=== PATIENT | male | born 1955 | race Caucasian/White ===

== ENCOUNTER 2017-10-07 17:37 | Emergency (ER) | payer OTHER ==
[~2017-10-07] VITALS: Ht 177.8 cm; Wt 115.8 kg
[~2017-10-07 17:37] MED LIST: ASPI-808 PO; LISI10TA2 PO; PANT40TA3 PO; POLY17PO23 PO; SUCR1TAB PO
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
[2017-10-07] MEDS ORDERED: HYDR-757 PO (18:43)
[2017-10-07 18:58] VITALS: BP 159/91
== END 2017-10-07 18:54 | disposition home or self-care (01) ==
LOC: EDUNIT# 17:37 → ER 17:39
DX: S16.1XXA Strain of muscle, fascia and tendon at neck level, initial encounter (principal); I10 Essential (primary) hypertension; Z87.442 Personal history of urinary calculi; V43.91XA Unspecified car occupant injured in collision with sport utility vehicle in traffic accident, initial encounter
CPT/HCPCS: 70450; 71020; 72125; 99283

== ENCOUNTER → 2019-04-12 | Outpatient (CLI) | payer MEDICARE ==
[~2019-04-12] MED LIST changes: +HYDR-4226 PO; -POLY17PO23 PO; +POLY17PO31 PO
--- NOTE | 2019-04-12 12:19 | Diagnostic Imaging Report ---
PROCEDURE: CT chest without contrast. TECHNIQUE: Multiple contiguous axial images were obtained through the chest without the use of intravenous contrast. Auto Exposure Controls were utilized during the CT exam to meet ALARA standards for radiation dose reduction. INDICATION: History of pneumonia, dyspnea, cough. CORRELATION STUDY: CT chest 04/09/2016. FINDINGS: Heart size normal. Scattered areas of mild coronary artery calcification. No pericardial effusion. Thoracic aortic contour unremarkable. There is rather significant tortuous course and some kinking at the lower descending thoracic aorta. No definitive pathologically enlarged mediastinal lymph nodes on noncontrast imaging. Unchanged elevated right diaphragm. Some right basilar lung volume loss. Areas of nodularity along pleural surface of the diaphragm and right lateral pleural surface overall generally stable. No significant consolidating infiltrate. Visualized portions of the upper abdomen demonstrate nonobstructing renal stone as well as probable left renal cyst. Likely some degree of hepatic steatosis. IMPRESSION: 1. Generally stable appearance about the chest demonstrates no acute abnormality. Dictated by: Dictated on workstation # [id number]
== END ==
LOC: RAD 09:27
PROVIDERS: ATTEND Nurse Practitioner Family
DX: J18.9 Pneumonia, unspecified organism (principal); J30.9 Allergic rhinitis, unspecified; K21.9 Gastro-esophageal reflux disease without esophagitis
CPT/HCPCS: 71250

== ENCOUNTER 2020-11-13 07:20 | Emergency (ER) | payer MEDICARE ==
[~2020-11-13] VITALS: Ht 177.8 cm; Wt 113.3 kg
[~2020-11-13 07:20] MED LIST changes: -PANT40TA3 PO; +PANT40TA52 PO
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
[2020-11-13 07:56] LABS: BASOPHILS # (AUTO) 0.1 10^3/uL (0.0-0.1); BASOPHILS % (AUTO) 1 % (0-10); EOSINOPHILS # (AUTO) 0.1 10^3/uL (0.0-0.3); EOSINOPHILS % (AUTO) 2 % (0-10); HEMATOCRIT 52 % (40-54); LYMPHOCYTES % (AUTO) 24 % (12-44); MEAN CORPUSCULAR HEMOGLOBIN 30 pg (25-34); MEAN CORPUSCULAR HGB CONC 33 g/dL (32-36); MEAN CORPUSCULAR VOLUME 92 fL (80-99); MEAN PLATELET VOLUME 10.8 fL (9.0-12.2); MONOCYTES # (AUTO) 0.7 10^3/uL (0.0-1.0); MONOCYTES % (AUTO) 9 % (0-12); NEUTROPHILS # (AUTO) 5.2 10^3/uL (1.8-7.8); NEUTROPHILS % (AUTO) 64 % (42-75); PLATELET COUNT 242 10^3/uL (130-400); WHITE BLOOD COUNT 8.1 10^3/uL (4.3-11.0)
[2020-11-13 08:00] LABS: BILIRUBIN,URINE NEGATIVE (NEGATIVE); CLARITY,URINE CLEAR; COLOR,URINE YELLOW; GLUCOSE, URINE (UA) NEGATIVE (NEGATIVE); KETONES,URINE NEGATIVE (NEGATIVE); LEUKOCYTE ESTERASE ,URINE NEGATIVE (NEGATIVE); NITRITE,URINE NEGATIVE (NEGATIVE); PROTEIN,URINE NEGATIVE (NEGATIVE)
[2020-11-13 08:09] LABS: BACTERIA,URINE NEGATIVE /HPF; SQUAMOUS EPITHELIAL CELL,UR RARE /HPF
[2020-11-13 08:11] LABS: ALBUMIN 4.2 GM/DL (3.2-4.5)
[2020-11-13 08:12] LABS: CHLORIDE 106 MMOL/L (98-107); SODIUM 139 MMOL/L (135-145)
--- NOTE | 2020-11-13 08:12 | NUR ---
Spoke to pt's via phone regarding plan of care.
[2020-11-13 08:13] LABS: CALCIUM 9.5 MG/DL (8.5-10.1)
[2020-11-13 08:14] LABS: GLUCOSE 159 MG/DL (70-105); TOTAL PROTEIN 7.4 GM/DL (6.4-8.2)
[2020-11-13 08:15] LABS: CARBON DIOXIDE 22 MMOL/L (21-32)
[2020-11-13 08:16] LABS: BILIRUBIN,TOTAL 0.5 MG/DL (0.1-1.0); FIBRIN DEGRADATION PRODUCTS 0.31 UG/ML (0.00-0.49); PROTHROMBIN TIME PATIENT 13.3 SEC (12.2-14.7)
[2020-11-13 08:17] LABS: ALKALINE PHOSPHATASE 116 U/L (40-136)
[2020-11-13 08:18] LABS: CREATININE SERUM 1.23 MG/DL (0.60-1.30); GFR ESTIMATED 59
[2020-11-13 08:19] LABS: BUN/CREATININE RATIO 11
[2020-11-13 08:21] LABS: ALANINE AMINOTRANSFERASE 31 U/L (0-55)
--- NOTE | 2020-11-13 08:36 | Diagnostic Imaging Report ---
PROCEDURE: CT head wo r/o stroke. TECHNIQUE: Multiple contiguous axial images were obtained through the brain without the use of intravenous contrast. Auto Exposure Controls were utilized during the CT exam to meet ALARA standards for radiation dose reduction. INDICATION: Right hand weakness and numbness. COMPARISON: CT head without contrast 10/07/2017. FINDINGS: No intracranial hemorrhage, mass effect, hydrocephalus, or extra-axial fluid collections. No CT evidence of a territorial infarction. The osseous structures are intact. The visualized paranasal sinuses and mastoids are clear. IMPRESSION: No acute intracranial CT findings. Dictated by: Dictated on workstation # [id number]
--- NOTE | 2020-11-13 08:36 | Diagnostic Imaging Report ---
INDICATION: Screening. COMPARISON: 10/07/2017. FINDINGS: The lungs remain clear. Blurring at the right costophrenic angle is stable and correlates with elevation of the right hemidiaphragm anteriorly as seen at the more remote chest CT. This is incidental. No failure, effusion, or pneumothorax. The heart size is within normal limits. No free air beneath the diaphragms. IMPRESSION: Stable unremarkable frontal chest. Dictated by: Dictated on workstation # [id number]
[2020-11-13 09:17] VITALS: BP 128/83
== END 2020-11-13 09:17 | disposition home or self-care (01) ==
LOC: EDUNIT# 07:20 → ER 07:22
DX: R20.2 Paresthesia of skin (principal); Z88.5 Allergy status to narcotic agent; Z88.8 Allergy status to other drugs, medicaments and biological substances
CPT/HCPCS: 36415; 70450; 71045; 80053; 81000; 84484; 85025; 85379; 85610; 85730; 93005; 93041

== ENCOUNTER 2021-03-16 11:44 | Emergency (ER) | payer MEDICARE ==
[~2021-03-16] VITALS: Ht 177 cm; Wt 113.0 kg
[~2021-03-16 11:44] MED LIST changes: -LISI10TA2 PO; +LISI10TA25 PO; -POLY17PO31 PO; +POLY17PO54 PO
--- NOTE | 2021-03-16 12:09 | ED Lower Extremity ---
General Chief Complaint: Lower Extremity Stated Complaint: POSSIBLE L ANKLE DISLOCATION Source: patient Exam Limitations: no limitations History of Present Illness Date Seen by Provider: March 16, 2021 Time Seen by Provider: 12:07 Initial Comments Left ankle pain. Injured this initially 4 weeks ago. Ordered a boot online, had persistent swelling, comes in today after he stepped on a ball with the forefoot and felt a popping tearing burning sensation in the posterior midline ankle. Onset: just prior to arrival Severity: moderate Pain/Injury Location: left ankle Method of Injury: fell Modifying Factors: Worse With Movement Allergies and Home Medications Allergies Coded Allergies: meperidine (Verified Allergy, Unknown, 04/09/16) morphine (Verified Allergy, Unknown, 04/09/16) perfume (Verified Allergy, Unknown, 04/09/16) Uncoded Allergies: SOAP DYES (Allergy, Unknown, 04/09/16) Home Medications Hydrocodone/Acetaminophen 1 Each Tablet, 1 EACH PO Q4H PRN for PAIN-MODERATE TO SEVERE Prescribed by: BALAJI HAILE on 10/07/171842 Pantoprazole Sodium 40 Mg Tablet.dr, 40 MG PO BIDAC Prescribed by: ANDREY LINO on 04/11/16922 Polyethylene Glycol 3350 17 Gm Powd.pack, 34 GM PO BID Prescribed by: ANDREY LINO on 04/11/16922 Sucralfate 1 Gm Tablet, 1 GM PO ACHS Prescribed by: ANDREY LINO on 04/11/16922 Patient Home Medication List Home Medication List Reviewed: Yes Review of Systems Constitutional: see HPI EENTM: see HPI Respiratory: no symptoms reported Cardiovascular: no symptoms reported Genitourinary: no symptoms reported Musculoskeletal: see HPI Skin: no symptoms reported Psychiatric/Neurological: No Symptoms Reported Past Ymbnonn-Pbdrjd-Crlcpu Hx Patient Social History 2nd Hand Smoke Exposure: No Recent Hopitalizations: No Seasonal Allergies Seasonal Allergies: No Past Medical History Surgeries: Yes (LT HIP X'S2, RT KNEE, RT EYE) Eye Surgery, Orthopedic Respiratory: No Cardiac: Yes Hypertension Neurological: Yes (post concussion syndrome) Reproductive Disorders: No Kidney Stones Gastrointestinal: No Musculoskeletal: Yes Arthritis Endocrine: No HEENT: Yes Loss of Vision: Denies Hearing Impairment: Denies Cancer: No Psychosocial: No Integumentary: No Physical Exam Vital Signs Vital Signs - First Documented 03/16/21 12:01 Temp 36.1 Pulse 78 Resp 22 B/P (MAP) 142/100 (114) Pulse Ox 92 O2 Delivery Room Air Capillary Refill : Height, Weight, BMI Height: 5'10.00" Weight: 255lbs. 5.0oz. 115.848771jj; 35.00 BMI Method:Stated General Appearance: WD/WN, no apparent distress Neck: non-tender, full range of motion Respiratory: no respiratory distress, no accessory muscle use Hips: bilateral hip non-tender, bilateral hip normal inspection, bilateral hip normal range of motion Legs: bilateral leg non-tender, bilateral leg normal inspection, bilateral leg normal range of motion Knees: bilateral knee non-tender, bilateral knee normal inspection, bilateral knee normal range of motion Ankles: left ankle other (Left ankle is swollen, tender to palpation over the medial malleolus, very tender over the Achilles and distal calf) Feet: bilateral foot non-tender, bilateral foot normal inspection, bilateral foot normal range of motion Neurologic/Psychiatric: alert, normal mood/affect, oriented x 3 Skin: normal color, warm/dry Progress/Results/Core Measures Results/Orders My Orders Orders - BALAJI HAILE APRN Ankle, Left, 3 Views (03/16/21 12:06) Vital Signs/I&O 03/16/21 12:01 Temp 36.1 Pulse 78 Resp 22 B/P (MAP) 142/100 (114) Pulse Ox 92 O2 Delivery Room Air Departure Impression Primary Impression: Achilles tendon tear Disposition: HOME, SELF-CARE Condition: Stable Departure-Patient Inst. Decision time for Depature: 12:36 Referrals: NO,LOCAL PHYSICIAN (PCP) Primary Care Physician MADHAVI NINO MD, MICHAEL P MD Patient Instructions: Achilles Tendon Repair Exercises Add. Discharge Instructions: 1. Tylenol and ibuprofen for pain control 2. Wear the walking boot that you have at home. Follow-up with orthopedics of your choosing. Sometimes these require surgical repair. All discharge instructions reviewed with patient and/or family. Voiced understanding. BALAJI HAILE APRN March 16, 2021 12:09
[2021-03-16 12:53] VITALS: BP 138/96
--- NOTE | 2021-03-16 13:23 | Diagnostic Imaging Report ---
Left ankle at 12:15. INDICATION: Ankle pain 3 views were obtained. There are no prior studies available comparison. On the AP view there is a thin calcific density interposed between the medial aspect of the talus and the medial malleolus of the distal tibia. This finding may represent a small avulsion fracture although its age is indeterminate. Clinical followup is recommended. No other fracture or acute bony abnormality appreciated. The ankle mortise is not widened and the talar dome is smooth. There does seem to be mild generalized soft tissue edema about the ankle joint. Incidental note is made of a calcaneal spur. IMPRESSION: 1. The small calcific density interposed between the talus and medial malleolus of the distal tibia may represent avulsion fracture. The age of the injury is uncertain however. Clinical followup is recommended. 2. There is no acute bony abnormality noted otherwise. Dictated by: Dictated on workstation # [id number]
== END 2021-03-16 12:52 | disposition home or self-care (01) ==
LOC: EDUNIT# 11:44 → ER 11:46
DX: S86.012A Strain of left Achilles tendon, initial encounter (principal); I10 Essential (primary) hypertension; X58.XXXA Exposure to other specified factors, initial encounter
CPT/HCPCS: 73610